=== PATIENT | male | born 1955 | race Caucasian/White ===

== ENCOUNTER 2019-11-17 22:38 | Observation (INO) | payer OTHER ==
[~2019-11-17] VITALS: Ht 182.9 cm; Wt 98.0 kg
--- NOTE | 2019-11-17 23:05 | NUR ---
The patient, ENOC RAMOS, 64 y/o, M admitted by ROCCO FRYE MD, was given written information regarding hospital policies, unit procedures and contact persons. Valuables were checked and logged. Call light in place. Will continue to monitor.
[2019-11-17] MEDS ORDERED: VANCOMYCIN 1.25 GM in IV NORMAL SALINE 250ML 250 ML IV SCH (23:15)
[2019-11-17 23:31] VITALS: BP 121/83
[2019-11-18] MEDS ORDERED: VANCOMYCIN PER PHARMACY MC PRN
[2019-11-18] MEDS ORDERED: VANCOMYCIN 2 GM in IV NORMAL SALINE 500ML 500 ML IV ONE ×2
[2019-11-18 00:33] LABS: CALCIUM 9.5 mg/dL (8.5-10.1); CREATININE 1.4 mg/dL (0.7-1.3); POTASSIUM 4.2 mmol/L (3.5-5.1)
[2019-11-18 01:22] LABS: BASO # 0.1 x10^3/uL (0.0-0.2); BASO % 1 % (0-3); EOS # 0.1 x10^3/uL (0.0-0.7); EOS % 2 % (0-3); HEMATOCRIT 41.4 % (39.0-53.0); HEMOGLOBIN 14.9 g/dL (13.0-17.5); LYMPH # 2.2 x10^3/uL (1.0-4.8); LYMPH % 31 % (24-48); MEAN CORPUSCULAR HEMOGLOBIN 32 pg (25-35); MEAN CORPUSCULAR HGB CONC 36 g/dL (31-37); MEAN CORPUSCULAR VOLUME 88 fL (79-100); MONO # 0.6 x10^3/uL (0.0-1.1); MONO % 8 % (0-9); NEUT # 4.3 x10^3uL (1.8-7.7); NEUT % 59 % (31-73); PLATELET COUNT 230 x10^3/uL (140-400); RED BLOOD COUNT 4.71 x10^6/uL (4.30-5.70); RED CELL DISTRIBUTION WIDTH 13.9 % (11.5-14.5); WHITE BLOOD COUNT 7.2 x10^3/uL (4.0-11.0)
[2019-11-18 01:29] LABS: SEDIMENTATION RATE 17 (0-15)
[2019-11-18] MEDS ORDERED: glipiZIDE 5 MG TABLET PO ONE (02:00)
[2019-11-18] MEDS ORDERED: SULF1TAB24 PO (02:01)
[2019-11-18] MEDS ORDERED: ALPR2TAB2 PO (02:03)
[2019-11-18 05:39] VITALS: BP 115/75
--- NOTE | 2019-11-18 07:00 | NUR ---
Received SBAR from mini shifter, KELLI Hernandez. PT sleeping quietly in bed but rousable to name. AO4. Denies pain or nausea at this time. VSS. PT denies any further needs at this time.
[2019-11-18] MEDS ORDERED: metFORMIN 500 MG TABLET PO SCH ×2 (08:00→17:00)
[2019-11-18] MEDS ORDERED: LISINOPRIL 20 MG TABLET PO SCH (09:00)
[2019-11-18] MEDS ORDERED: glipiZIDE 5 MG TABLET PO SCH (09:00)
[2019-11-18] MEDS ORDERED: LACTOBACILLUS RHAMNOSUS GG 1 CAPSULE. PO SCH (09:00)
--- NOTE | 2019-11-18 09:28 | NUR ---
PT states he is no longer on flomax following removal of his prostate. Addendum: 11/18/19 at 0943 by MARIAM GONZALEZ RN RN This note was made in error on wrong patient.
[2019-11-18] MEDS ORDERED: traMADol 50 MG TABLET PO PRN (09:30)
[2019-11-18] MEDS ORDERED: ZOLPIDEM 5 MG TABLET. PO PRN (09:30)
[2019-11-18 11:00] VITALS: BP 122/73
[2019-11-18] MEDS ORDERED: DEXTROSE 50% 25 GM / 50ML DISP.SYRIN. IV PRN (11:00)
[2019-11-18] MEDS ORDERED: LISI-334 PO (11:04)
[2019-11-18] MEDS ORDERED: VANC1.5P10 IV (11:04)
[2019-11-18] MEDS ORDERED: METF500T PO (11:04)
[2019-11-18] MEDS ORDERED: GLIP5TAB10 PO (11:04)
[2019-11-18 11:15] LABS: BARBITURATES NEG (NEG); BENZODIAZEPINES POS (NEG); CANNABINOIDS NEG (NEG); COCAINE NEG (NEG); METHADONE NEG (NEG); OPIATES POS (NEG); PHENCYCLIDINE NEG (NEG)
[2019-11-18] MEDS ORDERED: NON FORMULARY ITEM (Alprazolam (Xanax) 2 MG) PO PRN (11:15)
[2019-11-18 11:43] LABS: AMPHETAMINE/METHAMPHETAMINE POS (NEG)
[2019-11-18] MEDS ORDERED: INSULIN LISPRO 300 UNITS/3 ML VIAL. SQ SCH (12:00)
[2019-11-18] MEDS ORDERED: VANCOMYCIN 1.5 GM in IV NORMAL SALINE 500ML 500 ML IV SCH (13:00)
[2019-11-18] MEDS ORDERED: SOD CHLORIDE IV SCH (14:00)
[2019-11-18] MEDS ORDERED: [UNRECOGNIZED DRUG - OTHER] IV SCH (14:00)
[2019-11-18] MEDS ORDERED: VANCOMYCIN IV SCH (14:00)
--- NOTE | 2019-11-18 14:55 | NUR ---
Pt discharged home for self care. Pt scheduled to come in bid for antibiotic infusions. Pt iv dc'd with no complications, pressure dressing applied. Pt given discharge, follow up and medication instructions. Pt left unit in stable condition via ambulation accompanied by family member.
--- NOTE | 2019-11-19 00:34 | PN ---
DATE: SUBJECTIVE: A 64-year-old gentleman with cellulitis of his left fourth finger. He has failed outpatient therapy. He has been on Septra and IM shots of Rocephin without any success. He is also a diabetic. His blood sugars have gone milena high and he may have osteomyelitis and left hand cellulitis which has actually gotten worse probably because of his high blood sugars and vice versa. At any case, today his blood pressure 115/70, respiration 16, pulse 79, afebrile. We ordered a PICC line, but this being a 11/18/2019, we cannot apparently get that done and we are trying to get a hold of the insurance company to approve outpatient therapy for which he could receive IV vancomycin since he has failed the other 2 different antibiotics as an outpatient. It might also be noted that his lactic acid was elevated to 3.8, has come down to 2.2 (NC). Blood sugars have been as high as 300 and he is on a sliding scale of insulin as well as his oral hypoglycemic agents. His blood count was stable, but technically he had heart rate close to 100 and of course lactic acid, possible SIRS, no doubt if quite sepsis. PHYSICAL EXAMINATION: LUNGS: Clear. CARDIOVASCULAR: Stable. ABDOMEN: Soft. EXTREMITIES: The patient's left forefinger somewhat improved since he is receiving IV vancomycin, but will need to continue that for at least another 10 days to 2 weeks. IMPRESSION: Cellulitis, possible osteomyelitis of the left forefinger, unable to perform other testing at this time being a weekend and we will continue with IV antibiotic therapy. The patient will be discharged home. Outpatient IV antibiotic therapy has been cleared by nursing quarter supervisor. ROCCO FRYE MD DR: GIOVANNY/kathy JOB#: [id number] / [id number]
[2019-11-19] MEDS ORDERED: LISINOPRIL 20 MG TABLET PO SCH (09:00)
[2019-11-19] MEDS ORDERED: glipiZIDE 5 MG TABLET PO SCH (09:00)
--- NOTE | 2019-11-26 09:00 | NUR ---
Patient was a no show for this appointment. Patient called, he overslept and will be in tonight. Pt was due to have his vanc trough drawn. Addendum: 12/07/19 at 1322 by GÉNESIS GUPTA RN error in charting, wrong patient.
== END 2019-11-18 14:45 | disposition home or self-care (01) ==
LOC: 1 SOUTH 22:38 → INTOOBSV 22:38
PROVIDERS: ADMIT Family Medicine; ATTEND Family Medicine
DX: M86.8X4 Other osteomyelitis, hand (principal); L03.012 Cellulitis of left finger; I10 Essential (primary) hypertension; Z86.19 Personal history of other infectious and parasitic diseases
CPT/HCPCS: 36415; 80048; 80307; 82947; 83605; 85025; 85651; 87040; 96365; 96366; G0378; G0379; J3370; J7040